=== PATIENT | female | born 1970 | race Caucasian/White ===

== ENCOUNTER 2022-04-27 13:57 | Emergency (ER) | payer OTHER ==
[~2022-04-27] VITALS: Ht 157.5 cm; Wt 67.1 kg
[2022-04-27 14:16] VITALS: BP 144/96
[2022-04-27 18:37] LABS: BASOPHILS % (AUTO) 0.4 % (0.0-5.0); HEMATOCRIT 40.2 % (36-48); LYMPHOCYTES % (AUTO) 36.2 % (21.0-51.0); MEAN CORPUSCULAR HEMOGLOBIN 31.9 pg (27.0-33.0); MEAN CORPUSCULAR HGB CONC 34.3 g/dL (32.0-36.0); MEAN CORPUSCULAR VOLUME 92.8 fL (79-99); MONOCYTES % (AUTO) 8.6 % (3.0-13.0); NEUTROPHILS % (AUTO) 52.6 % (40.0-77.0); PLATELET COUNT (AUTO) 132 K/uL (130-400); RED BLOOD CELL COUNT(AUTO) 4.33 MIL/uL (4.00-5.50); WHITE BLOOD COUNT (AUTO) 5.6 K/uL (4.8-10.8)
[2022-04-27 18:43] LABS: CREATININE 0.6 mg/dL (0.5-1.5); POTASSIUM 4.1 mmol/L (3.5-5.1)
[2022-04-27 18:50] LABS: ALBUMIN 3.4 g/dL (3.5-5.0); TOTAL PROTEIN, SERUM 7.7 g/dL (6.0-8.3)
[2022-04-27] MEDS ORDERED: GABA-529 PO (18:59)
== END 2022-04-27 19:12 | disposition home or self-care (01) ==
LOC: EDH 13:57
DX: M79.601 Pain in right arm (principal); R20.2 Paresthesia of skin; R07.89 Other chest pain; Z79.899 Other long term (current) drug therapy
CPT/HCPCS: 36415; 71046; 80053; 85025

== ENCOUNTER 2022-11-16 23:58 | Inpatient (IN) | payer OTHER ==
[~2022-11-16] VITALS: Ht 157.5 cm; Wt 65.7 kg
[~2022-11-16 23:58] MED LIST: GABA-529 PO
[2022-11-17] VITALS (49 sets, daily range): BP systolic 85–191; BP diastolic 27–108; PULSE 67–101; RESP 13–35; TEMP 97; O2SAT 98–100
[2022-11-17] MEDS ORDERED: ONDANSETRON 4MG INJ ONE (00:06)
[2022-11-17 00:30] LABS: CREATININE 1.6 mg/dL (0.5-1.5); POTASSIUM 4.6 mmol/L (3.5-5.1)
[2022-11-17] MEDS ORDERED: ONDANSETRON 4MG INJ IVP ONE ×2 (00:30→09:00)
[2022-11-17] MEDS ORDERED: 0.9%NACL 1000ML 1,000 ML IV ONE ×2 (00:30→02:30)
[2022-11-17 00:33] LABS: BASOPHILS # (AUTO) 0.02 K/uL (0.00-0.20); BASOPHILS % (AUTO) 0.2 % (0.0-5.0); HEMATOCRIT 37.2 % (36-48); IMMATURE GRANULOCYTE ABSOLUTE 0.07 K/uL (0-1); LYMPHOCYTES # (AUTO) 1.9 K/uL (1.0-4.8); LYMPHOCYTES % (AUTO) 15.4 % (21.0-51.0); MEAN CORPUSCULAR HGB CONC 35.2 g/dL (32.0-36.0); MONOCYTES # (AUTO) 0.8 K/uL (0.1-1.0); MONOCYTES % (AUTO) 6.2 % (3.0-13.0); NEUTROPHILS # (AUTO) 9.7 K/uL (1.8-7.7); NEUTROPHILS % (AUTO) 77.6 % (40.0-77.0); PLATELET COUNT (AUTO) 214 K/uL (130-400); RED BLOOD CELL COUNT(AUTO) 4.09 MIL/uL (4.00-5.50); RED CELL DISTRIBUTION WIDTH 12.7 % (11.0-15.5); WHITE BLOOD COUNT (AUTO) 12.5 K/uL (4.8-10.8)
[2022-11-17 00:35] LABS: ALBUMIN 3.8 g/dL (3.5-5.0); BILIRUBIN,TOTAL 0.8 mg/dL (0.2-1.0); INFLUENZA TYPE A Negative For Type A (NEGATIVE); INFLUENZA TYPE B Negative For Type B (NEGATIVE); TOTAL PROTEIN, SERUM 8.3 g/dL (6.0-8.3)
[2022-11-17 00:42] LABS: SARS-CoV-2, RNA, NAAT POSITIVE SARS CoV-2 (NEGATIVE)
[2022-11-17] MEDS ORDERED: DIPHENOXYLATE HCL/ATROPINE 2.5/0.025 MG TAB PO ONE (02:30)
[2022-11-17] MEDS ORDERED: MAG/ALUM/SIMETH 30 ML UDCUP PO ONE (02:30)
[2022-11-17] MEDS ORDERED: LIDOCAINE HCL 2% VISCOUS 15 ML UDCUP PO ONE (02:30)
[2022-11-17 04:51] LABS: APPEARANCE,URINE CLOUDY (CLEAR); BILIRUBIN,URINE NEGATIVE (NEGATIVE); COLOR,URINE YELLOW (YELLOW); GLUCOSE, URINE (UA) 30 mg/dL (NEGATIVE); KETONES,URINE NEGATIVE (NEGATIVE); LEUKOCYTE ESTERASE ,URINE NEGATIVE Leu/uL (NEGATIVE); NITRATE,URINE NEGATIVE (NEGATIVE); OCCULT BLOOD,URINE NEGATIVE (NEGATIVE); PROTEIN,URINE 50 mg/dL (NEGATIVE)
[2022-11-17 04:53] LABS: ADD UA MICROSCOPIC YES
[2022-11-17 04:54] LABS: MUCUS,URINE RARE LPF (None Seen); RBC,URINE 0-1 /HPF (0-1); SQUAMOUS EPITHELIAL CELL,UR RARE /HPF (0-2)
[2022-11-17] MEDS ORDERED: MORPHINE 4 MG SYG IVP ONE (06:00)
[2022-11-17] MEDS ORDERED: MECLIZINE HCL 25 MG TABLET PO ONE (06:00)
[2022-11-17] MEDS ORDERED: 0.9%NACL 1000ML 1,000 ML IV STA (07:54)
[2022-11-17] MEDS ORDERED: NOREPINEPHRIN 4MG/NS 250ML 250 ML IV SCH (08:30)
[2022-11-17 08:42] LABS: BASOPHILS # (AUTO) 0.02 K/uL (0.00-0.20); BASOPHILS % (AUTO) 0.2 % (0.0-5.0); HEMATOCRIT 24.1 % (36-48); IMMATURE GRANULOCYTE ABSOLUTE 0.12 K/uL (0-1); LYMPHOCYTES # (AUTO) 1.9 K/uL (1.0-4.8); LYMPHOCYTES % (AUTO) 14.7 % (21.0-51.0); MEAN CORPUSCULAR HEMOGLOBIN 32.2 pg (27.0-33.0); MEAN CORPUSCULAR VOLUME 94.5 fL (79-99); NEUTROPHILS # (AUTO) 9.8 K/uL (1.8-7.7); NEUTROPHILS % (AUTO) 76.2 % (40.0-77.0); PLATELET COUNT (AUTO) 174 K/uL (130-400); RED BLOOD CELL COUNT(AUTO) 2.55 MIL/uL (4.00-5.50); WHITE BLOOD COUNT (AUTO) 12.9 K/uL (4.8-10.8)
[2022-11-17 08:52] LABS: INR 1.13 (0.85-1.15)
[2022-11-17 08:54] LABS: PARTIAL THROMBOPLASTIN TIME 25.4 SEC (26.3-35.5)
[2022-11-17] MEDS: PANTOPRAZOLE 40 MG/VIAL IVP SCH ×2 (09:14→19:54)
[2022-11-17] MEDS: 0.9%NACL 1000ML 1,000 ML IV SCH ×2 (09:14→19:55)
[2022-11-17] MEDS ORDERED: SUCCINYLCHOLINE 200MG/10ML SYR ONE (09:33)
[2022-11-17] MEDS ORDERED: ROCURONIUM 10MG/1ML SYR 10 MG/ML ML ONE (09:33)
[2022-11-17] MEDS ORDERED: LIDOCAINE PF 100MG/5ML (2%) SYRINGE 5ML ONE (09:33)
[2022-11-17] MEDS ORDERED: PROPOFOL 10 MG/ML 20ML VIAL IV ONE (09:33)
[2022-11-17] MEDS ORDERED: FENTANYL CITRATE PF 50 MCG/1 ML 2ML VIAL ONE (09:34)
[2022-11-17] MEDS ORDERED: MIDAZOLAM HCL 1 MG/ML 2ML VIAL ONE (09:58)
[2022-11-17 10:54] LABS: ABG BASE EXCESS -10.9 mmol/L (-2.0-3.0); ABG HCO3 15.3 mmol/L (21.0-28.0); ABG OXYGEN SATURATION 99.3 % (95.0-99.0); ABG PCO2 35 mmHg (32-45); ABG PH 7.255 (7.35-7.450); CARBON MONOXIDE 0.3; HHb 0.7; PO2, ARTERIAL BG > 500.0 mmHg (83.0-108.0); VENT MODE, BG OR (ROOM AIR)
[2022-11-17] MEDS ORDERED: HYDRALAZINE 20MG/ML VIAL ONE (11:20)
[2022-11-17] MEDS ORDERED: SUGAMMADEX SODIUM 200 MG/2 ML VIAL IV ONE ×2 (11:21→11:43)
[2022-11-17] MEDS ORDERED: LABETALOL 20MG VIAL IV ONE (11:31)
[2022-11-17] MEDS ORDERED: NITROGLYCERIN 50MG/D5W 250ML 1 BOT ONE (11:32)
[2022-11-17] MEDS ORDERED: MEPERIDINE-PF 25 MG/ML SYG ONE (11:35)
[2022-11-17] MEDS ORDERED: INFLUENZA VACCINE 60 MCG/0.5 ML IM ONE (13:00)
[2022-11-17] MEDS: ZOSYN 3.375GM+NS 50ML 50 ML IVPB SCH ×2 (13:02→19:55)
[2022-11-17] MEDS: MORPHINE 2 MG SYG IVP PRN ×3 (13:04→23:37)
[2022-11-17] MEDS ORDERED: THIAMINE HCL 100 MG/ML 2ML VIAL IVP ONE (16:37)
[2022-11-17 18:43] LABS: HEMATOCRIT 21.8 % (36-48)
[2022-11-17] MEDS: ONDANSETRON 4MG INJ IV PRN (20:05)
[2022-11-17 22:30] LABS: HEMATOCRIT 20.7 % (36-48)
[2022-11-18] VITALS (64 sets, daily range): BP systolic 86–167; BP diastolic 63–119; PULSE 81–107; RESP 12–30; O2SAT 97–99
[2022-11-18] MEDS: ONDANSETRON 4MG INJ IV PRN (02:58)
[2022-11-18] MEDS: ZOSYN 3.375GM+NS 50ML 50 ML IVPB SCH ×3 (04:32→20:08)
[2022-11-18] MEDS: 0.9%NACL 1000ML 1,000 ML IV SCH ×2 (04:32→14:32)
[2022-11-18] MEDS: MORPHINE 4 MG SYG IVP PRN ×2 (04:33→20:08)
[2022-11-18 04:47] LABS: HEMATOCRIT 23.2 % (36-48)
[2022-11-18 06:32] LABS: BASOPHILS # (AUTO) 0.01 K/uL (0.00-0.20); BASOPHILS % (AUTO) 0.1 % (0.0-5.0); HEMATOCRIT 21.6 % (36-48); IMMATURE GRANULOCYTE ABSOLUTE 0.07 K/uL (0-1); LYMPHOCYTES # (AUTO) 1.4 K/uL (1.0-4.8); LYMPHOCYTES % (AUTO) 10.6 % (21.0-51.0); MEAN CORPUSCULAR HEMOGLOBIN 30.3 pg (27.0-33.0); MEAN CORPUSCULAR HGB CONC 34.3 g/dL (32.0-36.0); MEAN CORPUSCULAR VOLUME 88.5 fL (79-99); MONOCYTES # (AUTO) 1.1 K/uL (0.1-1.0); MONOCYTES % (AUTO) 8.3 % (3.0-13.0); NEUTROPHILS # (AUTO) 10.2 K/uL (1.8-7.7); NEUTROPHILS % (AUTO) 80.4 % (40.0-77.0); PLATELET COUNT (AUTO) 100 K/uL (130-400); RED BLOOD CELL COUNT(AUTO) 2.44 MIL/uL (4.00-5.50); RED CELL DISTRIBUTION WIDTH 14.8 % (11.0-15.5); WHITE BLOOD COUNT (AUTO) 12.7 K/uL (4.8-10.8)
[2022-11-18 06:43] LABS: INR 1.06 (0.85-1.15); PROTHROMBIN TIME 12.2 SEC (9.6-11.6)
[2022-11-18 06:44] LABS: PARTIAL THROMBOPLASTIN TIME 28.3 SEC (26.3-35.5)
[2022-11-18 06:45] LABS: ALBUMIN 2.3 g/dL (3.5-5.0); BILIRUBIN,TOTAL 0.5 mg/dL (0.2-1.0); MAGNESIUM 1.6 mg/dL (1.80-2.40); POTASSIUM 4.2 mmol/L (3.5-5.1); TOTAL PROTEIN, SERUM 5.1 g/dL (6.0-8.3)
[2022-11-18] MEDS: MAGNESIUM 2GM PREMIX 50ML 50 ML IV SCH (08:53)
[2022-11-18] MEDS: MORPHINE 2 MG SYG IVP PRN ×2 (08:53→16:36)
[2022-11-18] MEDS: PANTOPRAZOLE 40 MG/VIAL IVP SCH ×2 (08:54→20:07)
[2022-11-18] MEDS: THIAMINE HCL 100 MG/ML 2ML VIAL IVP SCH (08:54)
[2022-11-18 15:28] LABS: HEMATOCRIT 20.5 % (36-48)
[2022-11-18 21:48] LABS: HEMATOCRIT 25.1 % (36-48)
[2022-11-18] MEDS ORDERED: FUROSEMIDE 20MG VIAL IV ONE (22:30)
[2022-11-19] VITALS (36 sets, daily range): BP systolic 120–170; BP diastolic 70–104; PULSE 69–91; RESP 13–22; O2SAT 93–99
[2022-11-19] MEDS: 0.9%NACL 1000ML 1,000 ML IV SCH ×3 (02:09→18:46)
[2022-11-19] MEDS: ZOSYN 3.375GM+NS 50ML 50 ML IVPB SCH ×3 (04:33→21:04)
[2022-11-19] MEDS: MORPHINE 4 MG SYG IVP PRN (04:33)
[2022-11-19 04:46] LABS: BASOPHILS # (AUTO) 0.01 K/uL (0.00-0.20); BASOPHILS % (AUTO) 0.1 % (0.0-5.0); HEMATOCRIT 23.3 % (36-48); LYMPHOCYTES # (AUTO) 0.8 K/uL (1.0-4.8); LYMPHOCYTES % (AUTO) 11.2 % (21.0-51.0); MEAN CORPUSCULAR HEMOGLOBIN 29.4 pg (27.0-33.0); MEAN CORPUSCULAR HGB CONC 33.9 g/dL (32.0-36.0); MEAN CORPUSCULAR VOLUME 86.6 fL (79-99); MONOCYTES # (AUTO) 0.7 K/uL (0.1-1.0); MONOCYTES % (AUTO) 9.1 % (3.0-13.0); NEUTROPHILS # (AUTO) 5.9 K/uL (1.8-7.7); NEUTROPHILS % (AUTO) 78.3 % (40.0-77.0); NUCLEATED RED BLOOD CELLS 0.3 % (0.0-0.19); PLATELET COUNT (AUTO) 63 K/uL (130-400); RED BLOOD CELL COUNT(AUTO) 2.69 MIL/uL (4.00-5.50); RED CELL DISTRIBUTION WIDTH 17.2 % (11.0-15.5); WHITE BLOOD COUNT (AUTO) 7.5 K/uL (4.8-10.8)
[2022-11-19 04:53] LABS: ALBUMIN 2.4 g/dL (3.5-5.0); CREATININE 0.8 mg/dL (0.5-1.5); POTASSIUM 3.5 mmol/L (3.5-5.1); TOTAL PROTEIN, SERUM 5.7 g/dL (6.0-8.3)
[2022-11-19] MEDS ORDERED: POTASSIUM CHLORIDE 20MEQ/100ML 100 ML IV PRN (07:30)
[2022-11-19] MEDS ORDERED: KCL 20 MEQ ERTAB PO PRN (07:30)
[2022-11-19] MEDS: THIAMINE HCL 100 MG/ML 2ML VIAL IVP SCH (07:59)
[2022-11-19] MEDS: PANTOPRAZOLE 40 MG/VIAL IVP SCH ×2 (07:59→21:04)
[2022-11-19] MEDS: POTASSIUM CHLORIDE 10% ELIXIR 20 MEQ/15 ML UDCUP PO PRN ×2 (08:04→10:13)
[2022-11-19 10:06] LABS: HEMATOCRIT 23.8 % (36-48)
[2022-11-19] MEDS ORDERED: FUROSEMIDE 20MG VIAL ONE (10:10)
[2022-11-19] MEDS: MAGNESIUM 2GM PREMIX 50ML 50 ML IV SCH (10:13)
[2022-11-19] MEDS: MORPHINE 2 MG SYG IVP PRN (10:14)
[2022-11-19 10:15] LABS: ABG BASE EXCESS 2.7 mmol/L (-2.0-3.0); ABG HCO3 26.4 mmol/L (21.0-28.0); ABG OXYGEN SATURATION 93.4 % (95.0-99.0); ABG PCO2 38 mmHg (32-45); ABG PH 7.465 (7.35-7.450); PO2, ARTERIAL BG 62.9 mmHg (83.0-108.0); VENT MODE, BG 2L NC (ROOM AIR)
[2022-11-19] MEDS ORDERED: FUROSEMIDE 20MG VIAL IV ONE (10:30)
[2022-11-19 17:07] LABS: HEMATOCRIT 25.2 % (36-48)
[2022-11-19] MEDS: HYDROCODONE/ACETAMINOPHEN 7.5/325 MG TAB PO PRN ×2 (17:39→21:46)
[2022-11-19 22:46] LABS: HEMATOCRIT 22.3 % (36-48)
[2022-11-20] VITALS (9 sets, daily range): BP systolic 108–127; BP diastolic 64–80; PULSE 63–75; RESP 16–18; O2SAT 94–95
[2022-11-20 03:48] LABS: BASOPHILS # (AUTO) 0.01 K/uL (0.00-0.20); BASOPHILS % (AUTO) 0.2 % (0.0-5.0); EOSINOPHILS # (AUTO) 0.02 K/uL (0.00-0.70); EOSINOPHILS % (AUTO) 0.3 % (0.0-8.0); HEMATOCRIT 21.7 % (36-48); IMMATURE GRANULOCYTE ABSOLUTE 0.06 K/uL (0-1); LYMPHOCYTES # (AUTO) 1.3 K/uL (1.0-4.8); MEAN CORPUSCULAR HEMOGLOBIN 28.9 pg (27.0-33.0); MEAN CORPUSCULAR HGB CONC 33.2 g/dL (32.0-36.0); MEAN CORPUSCULAR VOLUME 87.1 fL (79-99); MONOCYTES # (AUTO) 0.5 K/uL (0.1-1.0); MONOCYTES % (AUTO) 7.4 % (3.0-13.0); NEUTROPHILS # (AUTO) 4.3 K/uL (1.8-7.7); NEUTROPHILS % (AUTO) 70.1 % (40.0-77.0); NUCLEATED RED BLOOD CELLS 0.3 % (0.0-0.19); PLATELET COUNT (AUTO) 68 K/uL (130-400); RED BLOOD CELL COUNT(AUTO) 2.49 MIL/uL (4.00-5.50); RED CELL DISTRIBUTION WIDTH 16.2 % (11.0-15.5); WHITE BLOOD COUNT (AUTO) 6.1 K/uL (4.8-10.8)
[2022-11-20 04:04] LABS: ALBUMIN 2.1 g/dL (3.5-5.0); BILIRUBIN,TOTAL 1.1 mg/dL (0.2-1.0); CREATININE 0.6 mg/dL (0.5-1.5); POTASSIUM 3.2 mmol/L (3.5-5.1)
[2022-11-20 04:06] LABS: PLATELET MORPHOLOGY COMMENT DECREASED
[2022-11-20] MEDS: ZOSYN 3.375GM+NS 50ML 50 ML IVPB SCH ×3 (05:00→20:44)
[2022-11-20] MEDS: HYDROCODONE/ACETAMINOPHEN 7.5/325 MG TAB PO PRN ×4 (05:03→18:08)
[2022-11-20] MEDS: 0.9%NACL 1000ML 1,000 ML IV SCH (06:30)
[2022-11-20] MEDS: POTASSIUM CHLORIDE 10% ELIXIR 20 MEQ/15 ML UDCUP PO PRN ×2 (09:23→13:43)
[2022-11-20] MEDS: THIAMINE HCL 100 MG/ML 2ML VIAL IVP SCH (09:38)
[2022-11-20] MEDS: PANTOPRAZOLE 40 MG/VIAL IVP SCH ×2 (09:38→20:44)
[2022-11-20] MEDS: GABAPENTIN 100 MG CAPSULE PO SCH ×2 (13:45→20:44)
[2022-11-21 00:15] VITALS: BP 140/87; PULSE 74; RESP 18
[2022-11-21] MEDS: HYDROCODONE/ACETAMINOPHEN 7.5/325 MG TAB PO PRN (03:08)
[2022-11-21 04:22] VITALS: BP 143/96; PULSE 96; RESP 18
[2022-11-21 04:24] LABS: BASOPHILS # (AUTO) 0.01 K/uL (0.00-0.20); BASOPHILS % (AUTO) 0.1 % (0.0-5.0); EOSINOPHILS # (AUTO) 0.07 K/uL (0.00-0.70); HEMATOCRIT 24.6 % (36-48); LYMPHOCYTES # (AUTO) 1.3 K/uL (1.0-4.8); LYMPHOCYTES % (AUTO) 17.5 % (21.0-51.0); MEAN CORPUSCULAR HEMOGLOBIN 29.5 pg (27.0-33.0); MEAN CORPUSCULAR HGB CONC 32.9 g/dL (32.0-36.0); MEAN CORPUSCULAR VOLUME 89.5 fL (79-99); MONOCYTES # (AUTO) 0.5 K/uL (0.1-1.0); MONOCYTES % (AUTO) 7.3 % (3.0-13.0); NEUTROPHILS # (AUTO) 5.3 K/uL (1.8-7.7); NEUTROPHILS % (AUTO) 72.7 % (40.0-77.0); NUCLEATED RED BLOOD CELLS 0.4 % (0.0-0.19); PLATELET COUNT (AUTO) 108 K/uL (130-400); RED BLOOD CELL COUNT(AUTO) 2.75 MIL/uL (4.00-5.50); RED CELL DISTRIBUTION WIDTH 15.9 % (11.0-15.5); WHITE BLOOD COUNT (AUTO) 7.2 K/uL (4.8-10.8)
[2022-11-21 04:52] LABS: ALBUMIN 2.1 g/dL (3.5-5.0); BILIRUBIN,TOTAL 1.1 mg/dL (0.2-1.0); CREATININE 0.8 mg/dL (0.5-1.5); CRP QUANTITATIVE 47.4 mg/L (0.00-9.0); POTASSIUM 3.9 mmol/L (3.5-5.1); TOTAL PROTEIN, SERUM 5.5 g/dL (6.0-8.3)
[2022-11-21] MEDS: ZOSYN 3.375GM+NS 50ML 50 ML IVPB SCH ×2 (05:50→12:52)
[2022-11-21 07:00] VITALS: BP 140/86; PULSE 68; RESP 18
[2022-11-21 08:30] VITALS: O2SAT 96
[2022-11-21] MEDS ORDERED: LACTULOSE 20 GM/30 ML UDCUP PO SCH (09:00)
[2022-11-21] MEDS ORDERED: Vitamin B Complex/Vit C/Folic Acid PO SCH (09:00)
[2022-11-21] MEDS: PANTOPRAZOLE 40 MG/VIAL IVP SCH (09:43)
[2022-11-21] MEDS: GABAPENTIN 100 MG CAPSULE PO SCH ×2 (09:44→12:52)
[2022-11-21] MEDS: ACETAMINOPHEN 500 MG TABLET PO PRN ×2 (09:45→16:51)
[2022-11-21 11:00] VITALS: BP 146/91; PULSE 80; RESP 18
[2022-11-21 16:00] VITALS: BP 144/92; PULSE 92; RESP 20
== END 2022-11-21 17:33 | disposition home or self-care (01) | DRG 356 ==
LOC: EDH 11-17 00:20 → EDHIP 11-17 08:53 → 2BH 11-17 11:44 → 2AH 11-19 17:19
PROVIDERS: ADMIT Internal Medicine; ATTEND Internal Medicine
PROC: 30233K1 Transfusion of Nonautologous Frozen Plasma into Peripheral Vein, Percutaneous Approach (ICD-10-PCS; 2022-11-17)
PROC: 0W9G0ZZ Drainage of Peritoneal Cavity, Open Approach (ICD-10-PCS; principal; 2022-11-17 10:17)
PROC: 30233N1 Transfusion of Nonautologous Red Blood Cells into Peripheral Vein, Percutaneous Approach (ICD-10-PCS; 2022-11-17 10:17)
DX: K66.1 Hemoperitoneum (principal); R57.8 Other shock; U07.1 COVID-19; N17.9 Acute kidney failure, unspecified; E46 Unspecified protein-calorie malnutrition; D62 Acute posthemorrhagic anemia; E87.20 Acidosis, unspecified; B19.10 Unspecified viral hepatitis B without hepatic coma; B19.20 Unspecified viral hepatitis C without hepatic coma; D72.829 Elevated white blood cell count, unspecified; F17.210 Nicotine dependence, cigarettes, uncomplicated; F19.10 Other psychoactive substance abuse, uncomplicated; G47.00 Insomnia, unspecified; K59.00 Constipation, unspecified; Z68.26 Body mass index [BMI] 26.0-26.9, adult
CPT/HCPCS: 36415; 71045; 74176; 80053; 81001; 82435; 82803; 82947; 82948; 83605; 83690; 83735; 84132; 84145; 84295; 84484; 85014; 85018; 85025; 85610; 85730; 86140; 86850; 86900; 86901; 86923; 86927; 87040; 87635; 87804; 93005; 97039; C9113; C9803; G0378; J0330; J0360; J1940; J2001; J2175; J2250; J2270; J2405; J2543; J2704; J3010; J3411; J3475; J3490; J7030; P9016; P9017

== ENCOUNTER 2022-11-29 17:24 | Inpatient (IN) | payer OTHER ==
[~2022-11-29] VITALS: Ht 157.5 cm; Wt 56.7 kg
[~2022-11-29 17:24] MED LIST changes: +0.9%NACL 50ML IV SCH; -GABA-529 PO
[2022-11-29 19:17] LABS: APPEARANCE,URINE CLEAR (CLEAR); BILIRUBIN,URINE NEGATIVE (NEGATIVE); COLOR,URINE YELLOW (YELLOW); GLUCOSE, URINE (UA) NEGATIVE (NEGATIVE); KETONES,URINE NEGATIVE (NEGATIVE); LEUKOCYTE ESTERASE ,URINE 250 Leu/uL (NEGATIVE); NITRATE,URINE NEGATIVE (NEGATIVE); OCCULT BLOOD,URINE NEGATIVE (NEGATIVE); PROTEIN,URINE NEGATIVE (NEGATIVE); UROBILINOGEN,URINE >=8.0 mg/dL (0.2-1.0)
[2022-11-29 19:18] LABS: ADD UA MICROSCOPIC YES
[2022-11-29 19:35] LABS: BACTERIA,URINE RARE /HPF (None Seen); SQUAMOUS EPITHELIAL CELL,UR RARE /HPF (0-2); YEAST,URINE BUDDING RARE /HPF (None Seen)
[2022-11-29] MEDS ORDERED: FAMOTIDINE 20MG VIAL IV ONE (20:00)
[2022-11-29] MEDS ORDERED: KETOROLAC 30MG VIAL (30MG/ML) IVP ONE (20:00)
[2022-11-29 20:13] LABS: BASOPHILS # (AUTO) 0.02 K/uL (0.00-0.20); BASOPHILS % (AUTO) 0.2 % (0.0-5.0); EOSINOPHILS # (AUTO) 0.08 K/uL (0.00-0.70); EOSINOPHILS % (AUTO) 0.9 % (0.0-8.0); HEMATOCRIT 35.3 % (36-48); IMMATURE GRANULOCYTE ABSOLUTE 0.04 K/uL (0-1); LYMPHOCYTES # (AUTO) 1.5 K/uL (1.0-4.8); LYMPHOCYTES % (AUTO) 17.4 % (21.0-51.0); MEAN CORPUSCULAR HEMOGLOBIN 29.5 pg (27.0-33.0); MEAN CORPUSCULAR HGB CONC 32.3 g/dL (32.0-36.0); MEAN CORPUSCULAR VOLUME 91.2 fL (79-99); MONOCYTES # (AUTO) 0.8 K/uL (0.1-1.0); MONOCYTES % (AUTO) 8.8 % (3.0-13.0); NEUTROPHILS # (AUTO) 6.3 K/uL (1.8-7.7); NEUTROPHILS % (AUTO) 72.2 % (40.0-77.0); PLATELET COUNT (AUTO) 261 K/uL (130-400); RED BLOOD CELL COUNT(AUTO) 3.87 MIL/uL (4.00-5.50); RED CELL DISTRIBUTION WIDTH 15.8 % (11.0-15.5); WHITE BLOOD COUNT (AUTO) 8.8 K/uL (4.8-10.8)
[2022-11-29 20:35] LABS: CREATININE 0.6 mg/dL (0.5-1.5); POTASSIUM 3.4 mmol/L (3.5-5.1)
[2022-11-29 20:39] LABS: ALBUMIN 2.7 g/dL (3.5-5.0); TOTAL PROTEIN, SERUM 7.5 g/dL (6.0-8.3)
[2022-11-29] MEDS ORDERED: IOHEXOL 350 MG/ML 100ML INFUS..BTL IV ONE (20:53)
[2022-11-29] MEDS ORDERED: ZOSYN 3.375GM +NS 50ML IVPB ONE (22:00)
[2022-11-29] MEDS ORDERED: MORPHINE 4 MG SYG IVP ONE (22:00)
[2022-11-29] MEDS ORDERED: ONDANSETRON 4MG INJ ONE (22:11)
[2022-11-29 22:30] LABS: INR 0.96 (0.85-1.15); PROTHROMBIN TIME 11.2 SEC (9.6-11.6)
[2022-11-29] MEDS ORDERED: ONDANSETRON 4MG INJ IVP ONE (22:30)
[2022-11-29 22:31] LABS: PARTIAL THROMBOPLASTIN TIME 27.1 SEC (26.3-35.5)
[2022-11-29] MEDS: ZOSYN 3.375GM +NS 50ML IVPB SCH (22:45)
[2022-11-29] MEDS: LACTATED RINGERS 1000ML 1,000 ML IV SCH (22:51)
[2022-11-29] MEDS ORDERED: ONDANSETRON 4MG INJ IV PRN (23:00)
[2022-11-29] MEDS ORDERED: MAGNESIUM 2GM PREMIX 50ML 50 ML IV PRN (23:00)
[2022-11-29] MEDS ORDERED: POTASSIUM CHLORIDE 20MEQ/100ML 100 ML IV PRN (23:00)
[2022-11-29 23:08] VITALS: O2SAT 96
[2022-11-30 00:48] VITALS: BP 131/91; PULSE 73; RESP 17
[2022-11-30] MEDS: MORPHINE 2 MG SYG IVP PRN ×2 (03:24→09:08)
[2022-11-30 04:00] VITALS: BP 137/84; PULSE 71; RESP 15
[2022-11-30 04:57] LABS: BASOPHILS # (AUTO) 0.01 K/uL (0.00-0.20); BASOPHILS % (AUTO) 0.2 % (0.0-5.0); EOSINOPHILS % (AUTO) 1.6 % (0.0-8.0); HEMATOCRIT 29.2 % (36-48); IMMATURE GRANULOCYTE ABSOLUTE 0.03 K/uL (0-1); LYMPHOCYTES # (AUTO) 1.1 K/uL (1.0-4.8); LYMPHOCYTES % (AUTO) 18.2 % (21.0-51.0); MEAN CORPUSCULAR HEMOGLOBIN 29.3 pg (27.0-33.0); MEAN CORPUSCULAR HGB CONC 31.5 g/dL (32.0-36.0); MONOCYTES # (AUTO) 0.5 K/uL (0.1-1.0); MONOCYTES % (AUTO) 8.9 % (3.0-13.0); NEUTROPHILS # (AUTO) 4.3 K/uL (1.8-7.7); NEUTROPHILS % (AUTO) 70.6 % (40.0-77.0); PLATELET COUNT (AUTO) 214 K/uL (130-400); RED BLOOD CELL COUNT(AUTO) 3.14 MIL/uL (4.00-5.50); RED CELL DISTRIBUTION WIDTH 15.7 % (11.0-15.5); WHITE BLOOD COUNT (AUTO) 6.1 K/uL (4.8-10.8)
[2022-11-30 05:35] LABS: ALBUMIN 2.3 g/dL (3.5-5.0); BILIRUBIN,TOTAL 0.9 mg/dL (0.2-1.0); CREATININE 0.6 mg/dL (0.5-1.5); POTASSIUM 3.5 mmol/L (3.5-5.1); TOTAL PROTEIN, SERUM 6.3 g/dL (6.0-8.3)
[2022-11-30] MEDS: ZOSYN 3.375GM +NS 50ML IVPB SCH ×2 (06:28→16:06)
[2022-11-30 08:00] VITALS: BP 121/87; PULSE 77; RESP 18
[2022-11-30] MEDS: LACTATED RINGERS 1000ML 1,000 ML IV SCH ×2 (08:42→11:13)
[2022-11-30] MEDS ORDERED: FAMOTIDINE 20MG VIAL IV SCH (09:00)
[2022-11-30 12:00] VITALS: BP 143/86; PULSE 73; RESP 16
[2022-11-30] MEDS ORDERED: KETOROLAC 30MG VIAL (30MG/ML) IVP ONE (13:30)
[2022-11-30] MEDS ORDERED: KETOROLAC 30MG VIAL (30MG/ML) IM PRN (13:30)
[2022-11-30] MEDS ORDERED: AMOX1TAB16 PO (13:49)
[2022-11-30 16:00] VITALS: BP 120/72; PULSE 62; RESP 18
== END 2022-11-30 18:00 | disposition home or self-care (01) | DRG 689 ==
LOC: EDH 17:24 → EDHIP 17:25 → 4DH 23:45
PROVIDERS: ADMIT Hospitalist; ATTEND Hospitalist
DX: N39.0 Urinary tract infection, site not specified (principal); E43 Unspecified severe protein-calorie malnutrition; D64.9 Anemia, unspecified; E87.6 Hypokalemia; F17.210 Nicotine dependence, cigarettes, uncomplicated; K74.60 Unspecified cirrhosis of liver; Z91.199 Patient's noncompliance with other medical treatment and regimen due to unspecified reason; Z68.22 Body mass index [BMI] 22.0-22.9, adult
CPT/HCPCS: 36415; 74018; 74177; 80053; 81001; 83690; 84145; 85025; 85610; 85730; 87040; 87088; G0378; J1885; J2270; J2405; J2543; J3490; Q9967